=== PATIENT | female | born 1945 | race African-American/Black ===

== ENCOUNTER 2018-06-23 16:19 | Inpatient (IN) | payer OTHER ==
[2018-06-23] MEDS: SODIUM CHLORIDE 0.9% 1L BAG IV* (16:45)
[2018-06-23 17:02] LABS: ADD MAN DIFF? NO; BASOPHILS % 0.2 % (0.0-2.0); EOSINOPHILS % 0.4 % (0.0-7.0); HEMATOCRIT 22.5 % (37.0-47.0); HEMOGLOBIN 7.2 g/dl (12.0-16.0); LYMPHOCYTES # 1.1 10^3/ul (0.8-2.9); LYMPHOCYTES % 13.9 % (15.0-51.0); MEAN CORPUSCULAR HEMOGLOBIN 28.1 pg (29.0-33.0); MEAN CORPUSCULAR VOLUME 87.9 fl (82.0-101.0); MEAN PLATELET VOLUME 9.6 fl (7.4-10.4); MONOCYTE # 0.5 10^3/ul (0.3-0.9); NEUTROPHIL # 6.1 10^3/ul (1.6-7.5); NEUTROPHILS % 74.6 % (39.0-77.0); NUCLEATED RED BLOOD CELLS # 0.1 10^3/ul (0.0-0.0); NUCLEATED RED BLOOD CELLS% 0.6 /100WBC (0.0-0.0); PLATELET COUNT 376 10^3/UL (140-415); RED BLOOD COUNT 2.56 10^6/ul (4.20-5.40); RED CELL DISTRIBUTION WIDTH 13.3 % (11.5-14.5)
[2018-06-23 17:02] LABS: WHITE BLOOD COUNT 8.2 10^3/ul (4.8-10.8)
[2018-06-23 17:22] LABS: INR 1.05; PROTIME 13.8 Sec (11.9-14.9); PT RATIO 1.1
[2018-06-23 17:23] LABS: PARTIAL THROMBOPLASTIN TIME 33.6 Sec (23.0-35.0)
[2018-06-23] MEDS: CEFEPIME 2GM/50 ML (PMX) 50 ML IVPB (17:24)
[2018-06-23 17:25] LABS: LACTIC ACID 1.6 mmol/L (0.5-2.0)
[2018-06-23 17:25] LABS: ADD UMIC YES; ALANINE AMINOTRANSFERASE 17 IU/L (13-69); ALBUMIN/GLOBULIN RATIO 0.56; ALKALINE PHOSPHATASE 89 IU/L (42-121); ANION GAP 8 (5-13); ASPARTATE AMINO TRANSFERASE 26 IU/L (15-46); BILIRUBIN,INDIRECT 0.1 mg/dl (0-1.1); BILIRUBIN,TOTAL 0.1 mg/dl (0.2-1.3); CALCIUM 9.1 mg/dl (8.4-10.2); CARBON DIOXIDE 24 mmol/L (21-31); CHLORIDE 116 mmol/L (97-110); CREATININE 1.07 mg/dl (0.44-1.00); Estimated GFR > 60 mL/min (>60); GLUCOSE 129 mg/dl (70-220); POTASSIUM 3.5 mmol/L (3.5-5.1); SODIUM 148 mmol/L (135-144); TOTAL PROTEIN 8.3 g/dl (6.1-8.1); UR ASCORBIC ACID 40 mg/dL (NEGATIVE); UR BACTERIA FEW /HPF (NONE SEEN); UR BILIRUBIN (Dip) NEGATIVE (NEGATIVE); UR BLOOD (Dip) NEGATIVE (NEGATIVE); UR CLARITY CLOUDY (CLEAR); UR COLOR YELLOW (YELLOW); UR GLUCOSE (Dip) NEGATIVE (NEGATIVE); UR KETONES (Dip) TRACE mg/dL (NEGATIVE); UR LEUKOCYTE ESTERASE (Dip) 3+ Leu/ul (NEGATIVE); UR NITRITE (Dip) NEGATIVE (NEGATIVE); UR RBC 2 /HPF (0-5); UR SPECIFIC GRAVITY (Dip) 1.013 (1.003-1.030); UR TOTAL PROTEIN (Dip) 1+ mg/dl (NEGATIVE); UR UROBILINOGEN (Dip) NEGATIVE (NEGATIVE); UR WBC > 182 /HPF (0-5)
[2018-06-23 17:38] LABS: BLOOD UREA NITROGEN 147 mg/dl (7-20)
[2018-06-23 17:40] LABS: TROPONIN-I < 0.012 ng/ml (0.000-0.120)
[2018-06-23] MEDS: VANCOMYCIN 1 GM (PMX) 250 ML IVPB (18:04)
[2018-06-23] MEDS ORDERED: ACETAMINOPHEN 325 MG TAB PO ×2 (18:30→19:00)
[2018-06-23] MEDS ORDERED: ONDANSETRON 4 MG INJ IV ×2 (18:30→19:00)
[2018-06-23] MEDS ORDERED: SOD CHLORIDE 0.9% 1,000 ML IV (18:52)
[2018-06-23 18:53] LABS: LACTIC ACID 0.9 mmol/L (0.5-2.0)
[2018-06-23] MEDS ORDERED: morphine 2 MG INJ IV (19:00)
[2018-06-23] MEDS ORDERED: NACL 0.9% 3 ML SYG IV (19:00)
[2018-06-23] MEDS ORDERED: traMADol 50 MG TAB GTB (19:00)
[2018-06-23] MEDS ORDERED: HYDROCODONE/APAP (5/325) TAB PO (19:00)
[2018-06-23] MEDS ORDERED: ACETAMINOPHEN 325 MG TAB GTB (19:00)
[2018-06-23 21:32] LABS: LACTIC ACID 0.6 mmol/L (0.5-2.0)
[2018-06-23] MEDS: MIRTAZAPINE 15 MG TAB GTB (21:57)
[2018-06-23] MEDS: GABAPENTIN 300 MG CAP GTB (21:57)
[2018-06-23] MEDS: NS + KCL 20 MEQ 1,000 ML IV (22:10)
[2018-06-24] MEDS: PIPER-TAZO 3.375 GM IV (PMX) 100 ML IVPB ×4 (00:20→18:15)
[2018-06-24] MEDS: hydrALAzine 20 MG INJ IV (00:20)
[2018-06-24] MEDS: SOD CHLORIDE 0.9% 500 ML IV (03:41)
[2018-06-24] MEDS ORDERED: NORepinephrine 8MG/250 ML (PMX 250 ML (05:01)
[2018-06-24] MEDS: NS + KCL 20 MEQ 1,000 ML IV (05:30)
[2018-06-24 05:45] LABS: WHITE BLOOD COUNT 8.4 10^3/ul (4.8-10.8)
[2018-06-24 05:45] LABS: ABNORMAL IP MESSAGE 1; HEMATOCRIT 21.2 % (37.0-47.0); MEAN CORPUSCULAR HEMOGLOBIN 27.3 pg (29.0-33.0); MEAN CORPUSCULAR HGB CONC 31.6 g/dl (32.0-37.0); MEAN CORPUSCULAR VOLUME 86.5 fl (82.0-101.0); MEAN PLATELET VOLUME 9.8 fl (7.4-10.4); NUCLEATED RED BLOOD CELLS% 0.7 /100WBC (0.0-0.0); PLATELET COUNT 353 10^3/UL (140-415); RED BLOOD COUNT 2.45 10^6/ul (4.20-5.40); RED CELL DISTRIBUTION WIDTH 13.2 % (11.5-14.5)
[2018-06-24 05:51] LABS: ADD MAN DIFF? YES; POSITIVE DIFF @See below
[2018-06-24 05:52] LABS: HEMOGLOBIN 6.7 g/dl (12.0-16.0)
[2018-06-24 06:03] LABS: HEMOGLOBIN A1C 5.9 % (0-5.9)
[2018-06-24 06:13] LABS: ANION GAP 6 (5-13); CALCIUM 8.2 mg/dl (8.4-10.2); CARBON DIOXIDE 23 mmol/L (21-31); CHLORIDE 122 mmol/L (97-110); CREATININE 0.92 mg/dl (0.44-1.00); Estimated GFR > 60 mL/min (>60); GLUCOSE 85 mg/dl (70-220); MAGNESIUM 1.6 mg/dl (1.7-2.5); PHOSPHORUS 2.5 mg/dl (2.5-4.9); POTASSIUM 3.3 mmol/L (3.5-5.1); SODIUM 151 mmol/L (135-144)
[2018-06-24] MEDS: NORepinephrine 8MG/250 ML (PMX 250 ML IV (06:14)
[2018-06-24 06:26] LABS: BLOOD UREA NITROGEN 127 mg/dl (7-20)
[2018-06-24] MEDS: MAGNESIUM SULFATE 2 GM/50 ML 50 ML IVPB (07:07)
[2018-06-24 08:05] LABS: ANISOCYTOSIS 2+ (0-0); BAND NEUTROPHILS #M 0.5 10^3/ul (0.0-0.6); BAND NEUTROPHILS % (M) 7 % (0-4); EOSINOPHILS % (M) 1 % (0-7); HYPOCHROMASIA 3+ (0-0); LYMPHOCYTES % (M) 13 % (15-51); MONOCYTE #M 0.5 10^3/ul (0.3-0.9); MONOCYTES % (M) 6 % (0-11); MYELOCYTES % (M) 1 % (0-0); OVALOCYTES 1+ (0-0); PLATELET ESTIMATE NORMAL; POIKILOCYTOSIS 1+ (0-0); POLYCHROMASIA 3+ (0-0); SEG NEUT #M 6.1 10^3/ul (1.6-7.5); SEGMENTED NEUTROPHILS (M) % 72 % (39-77); SMUDGE%M 11 % (0-0); TARGET CELLS 1+ (0-0)
[2018-06-24] MEDS: ASCORBIC ACID 500 MG TAB GTB (08:57)
[2018-06-24] MEDS: POTASSIUM CHLORIDE 100 ML IVPB (08:58)
[2018-06-24] MEDS: ENOXAPARIN 40 MG/0.4 ML SYG SC (08:59)
[2018-06-24] MEDS: DEXTROSE 5% 1,000 ML IV ×3 (09:32→20:56)
[2018-06-24] MEDS: LEVOTHYROXINE 75 MCG TAB GTB (09:35)
[2018-06-24] MEDS: LIDOCAINE 1% (MPF) 5 ML VIAL SC (13:35)
[2018-06-24] MEDS: GABAPENTIN 300 MG CAP GTB (20:58)
[2018-06-25] MEDS: PIPER-TAZO 3.375 GM IV (PMX) 100 ML IVPB ×4 (00:18→17:26)
[2018-06-25] MEDS: DEXTROSE 5% 1,000 ML IV (05:18)
[2018-06-25 05:27] LABS: ADD MAN DIFF? NO
[2018-06-25 05:31] LABS: BASOPHILS % 0.2 % (0.0-2.0); EOSINOPHILS % 0.2 % (0.0-7.0); HEMATOCRIT 24.3 % (37.0-47.0); HEMOGLOBIN 7.7 g/dl (12.0-16.0); LYMPHOCYTES # 1.2 10^3/ul (0.8-2.9); LYMPHOCYTES % 9.4 % (15.0-51.0); MEAN CORPUSCULAR HEMOGLOBIN 28.2 pg (29.0-33.0); MEAN CORPUSCULAR HGB CONC 31.7 g/dl (32.0-37.0); MEAN PLATELET VOLUME 9.7 fl (7.4-10.4); MONOCYTE # 0.5 10^3/ul (0.3-0.9); MONOCYTES % 3.9 % (0.0-11.0); NEUTROPHIL # 10.4 10^3/ul (1.6-7.5); NEUTROPHILS % 84.2 % (39.0-77.0); NUCLEATED RED BLOOD CELLS # 0.1 10^3/ul (0.0-0.0); NUCLEATED RED BLOOD CELLS% 0.6 /100WBC (0.0-0.0); PLATELET COUNT 324 10^3/UL (140-415); RED BLOOD COUNT 2.73 10^6/ul (4.20-5.40)
[2018-06-25 05:31] LABS: WHITE BLOOD COUNT 12.4 10^3/ul (4.8-10.8)
[2018-06-25 06:05] LABS: ALANINE AMINOTRANSFERASE 10 IU/L (13-69); ALBUMIN 2.8 g/dl (3.3-4.9); ALKALINE PHOSPHATASE 80 IU/L (42-121); ANION GAP 7 (5-13); ASPARTATE AMINO TRANSFERASE 20 IU/L (15-46); BILIRUBIN,INDIRECT 0.1 mg/dl (0-1.1); BILIRUBIN,TOTAL 0.1 mg/dl (0.2-1.3); BLOOD UREA NITROGEN 106 mg/dl (7-20); CALCIUM 8.4 mg/dl (8.4-10.2); CARBON DIOXIDE 22 mmol/L (21-31); CHLORIDE 118 mmol/L (97-110); CREATININE 0.97 mg/dl (0.44-1.00); Estimated GFR > 60 mL/min (>60); GLUCOSE 189 mg/dl (70-220); POTASSIUM 3.2 mmol/L (3.5-5.1); SODIUM 147 mmol/L (135-144); TOTAL PROTEIN 7.4 g/dl (6.1-8.1)
[2018-06-25] MEDS: ASCORBIC ACID 500 MG TAB GTB (08:19)
[2018-06-25] MEDS: LEVOTHYROXINE 75 MCG TAB GTB (08:19)
[2018-06-25 08:51] LABS: AADO2 Arterial 50.3 mmHg (7.0-24.0); Allen Test ACCEPTAB; Arterial Base Excess -6.2 mmol/L (-3.0-3); Arterial Blood Gas Oxygen Sat 97.9 mmHG (95.0-98.0); Arterial COHb 0.3 % (0.0-3.0); Arterial Fraction of Oxyhgb 97.4 % (93.0-99.0); Arterial MetHb 0.2 % (0.0-1.5); Arterial pCO2 42.6 mmhg (35-45); MODE NASAL CANNULA; Site Right Radial
[2018-06-25] MEDS ORDERED: morphine LIQ (10 MG/5 ML) CUP GTB (12:00)
[2018-06-25 12:32] LABS: IMMEDIATE SPIN CROSSMATCH 1 2
[2018-06-25 13:24] LABS: MAGNESIUM 2.1 mg/dl (1.7-2.5)
[2018-06-25] MEDS: POTASSIUM CHLORIDE 100 ML IVPB ×3 (14:06→19:57)
[2018-06-25] MEDS: DEXTROSE 5%-0.225% NACL 1,000 ML IV ×2 (14:20→21:30)
[2018-06-25] MEDS: GABAPENTIN 300 MG CAP GTB (20:02)
[2018-06-25] MEDS: MUPIROCIN 2% 22 GM OINT TOP (20:04)
[2018-06-25] MEDS: NORepinephrine 8MG/250 ML (PMX 250 ML IV (21:50)
[2018-06-26] MEDS: PIPER-TAZO 3.375 GM IV (PMX) 100 ML IVPB ×4 (00:32→18:02)
[2018-06-26 04:31] LABS: ADD MAN DIFF? NO
[2018-06-26 04:36] LABS: WHITE BLOOD COUNT 9.8 10^3/ul (4.8-10.8)
[2018-06-26 04:36] LABS: BASOPHILS % 0.2 % (0.0-2.0); EOSINOPHILS # 0.1 10^3/ul (0.0-0.5); EOSINOPHILS % 0.5 % (0.0-7.0); HEMATOCRIT 28.5 % (37.0-47.0); LYMPHOCYTES # 1.3 10^3/ul (0.8-2.9); MEAN CORPUSCULAR HEMOGLOBIN 28.2 pg (29.0-33.0); MEAN CORPUSCULAR HGB CONC 31.6 g/dl (32.0-37.0); MEAN CORPUSCULAR VOLUME 89.3 fl (82.0-101.0); MEAN PLATELET VOLUME 9.7 fl (7.4-10.4); MONOCYTE # 0.7 10^3/ul (0.3-0.9); MONOCYTES % 6.8 % (0.0-11.0); NEUTROPHIL # 7.6 10^3/ul (1.6-7.5); NEUTROPHILS % 77.5 % (39.0-77.0); NUCLEATED RED BLOOD CELLS # 0.1 10^3/ul (0.0-0.0); NUCLEATED RED BLOOD CELLS% 1.1 /100WBC (0.0-0.0); PLATELET COUNT 279 10^3/UL (140-415); RED BLOOD COUNT 3.19 10^6/ul (4.20-5.40)
[2018-06-26 04:54] LABS: ANION GAP 7 (5-13); BLOOD UREA NITROGEN 81 mg/dl (7-20); CALCIUM 8.3 mg/dl (8.4-10.2); CARBON DIOXIDE 22 mmol/L (21-31); CHLORIDE 115 mmol/L (97-110); CREATININE 0.84 mg/dl (0.44-1.00); Estimated GFR > 60 mL/min (>60); GLUCOSE 177 mg/dl (70-220); MAGNESIUM 1.6 mg/dl (1.7-2.5); PHOSPHORUS 2.5 mg/dl (2.5-4.9); POTASSIUM 3.8 mmol/L (3.5-5.1); SODIUM 144 mmol/L (135-144)
[2018-06-26] MEDS: DEXTROSE 5%-0.225% NACL 1,000 ML IV ×2 (05:23→16:29)
[2018-06-26] MEDS: POTASSIUM CHLORIDE 100 ML IVPB ×2 (06:36→08:26)
[2018-06-26] MEDS: MAGNESIUM SULFATE 2 GM/50 ML 50 ML IVPB (06:36)
[2018-06-26] MEDS: ASCORBIC ACID 500 MG TAB GTB (08:11)
[2018-06-26] MEDS: MUPIROCIN 2% 22 GM OINT TOP ×3 (08:12→20:39)
[2018-06-26] MEDS: LEVOTHYROXINE 75 MCG TAB GTB (08:12)
[2018-06-26] MEDS: ALBUMIN HUMAN 25% 100 ML IV ×2 (09:54→17:04)
[2018-06-26] MEDS: MIDODRINE 5 MG TAB PO ×3 (10:23→17:03)
[2018-06-26] MEDS ORDERED: VANCOMYCIN IV PER PHARMACY XX (11:30)
[2018-06-26] MEDS: VANCOMYCIN HCL 1.75 GM in SOD CHLORIDE 0.9% 500 ML IVPB (13:43)
[2018-06-26 17:43] LABS: ADD UMIC YES; UR ASCORBIC ACID 20 mg/dL (NEGATIVE); UR BACTERIA FEW /HPF (NONE SEEN); UR BILIRUBIN (Dip) NEGATIVE (NEGATIVE); UR BLOOD (Dip) 1+ mg/dL (NEGATIVE); UR BUDDING YEAST MANY /HPF (NONE SEEN); UR CLARITY CLOUDY (CLEAR); UR COLOR YELLOW (YELLOW); UR GLUCOSE (Dip) NEGATIVE (NEGATIVE); UR KETONES (Dip) NEGATIVE (NEGATIVE); UR LEUKOCYTE ESTERASE (Dip) 3+ Leu/ul (NEGATIVE); UR MUCUS FEW /HPF (NONE SEEN); UR NITRITE (Dip) NEGATIVE (NEGATIVE); UR RBC 10 /HPF (0-5); UR SPECIFIC GRAVITY (Dip) 1.012 (1.003-1.030); UR SQUAMOUS EPITHELIAL CELL FEW /HPF (FEW); UR TOTAL PROTEIN (Dip) 2+ mg/dl (NEGATIVE); UR UROBILINOGEN (Dip) NEGATIVE (NEGATIVE); UR WBC 124 /HPF (0-5)
[2018-06-26 18:01] LABS: CREATININE,URINE RANDOM 16.38 mg/dl (20-320)
[2018-06-26 18:05] LABS: SODIUM,URINE RANDOM 13 mmol/L (30-90)
[2018-06-26] MEDS: GABAPENTIN 300 MG CAP GTB (20:39)
[2018-06-27] MEDS: PIPER-TAZO 3.375 GM IV (PMX) 100 ML IVPB ×4 (00:46→17:31)
[2018-06-27] MEDS: VANCOMYCIN 1 GM 250 ML IVPB ×2 (02:24→14:13)
[2018-06-27] MEDS: ALBUMIN HUMAN 25% 100 ML IV ×3 (02:26→15:30)
[2018-06-27 05:15] LABS: ADD MAN DIFF? NO
[2018-06-27 05:23] LABS: WHITE BLOOD COUNT 10.5 10^3/ul (4.8-10.8)
[2018-06-27 05:23] LABS: BASOPHILS % 0.2 % (0.0-2.0); EOSINOPHILS # 0.1 10^3/ul (0.0-0.5); EOSINOPHILS % 0.9 % (0.0-7.0); HEMATOCRIT 26.8 % (37.0-47.0); HEMOGLOBIN 8.2 g/dl (12.0-16.0); LYMPHOCYTES # 1.2 10^3/ul (0.8-2.9); LYMPHOCYTES % 11.3 % (15.0-51.0); MEAN CORPUSCULAR HEMOGLOBIN 27.7 pg (29.0-33.0); MEAN CORPUSCULAR HGB CONC 30.6 g/dl (32.0-37.0); MEAN CORPUSCULAR VOLUME 90.5 fl (82.0-101.0); MEAN PLATELET VOLUME 9.9 fl (7.4-10.4); MONOCYTE # 0.7 10^3/ul (0.3-0.9); MONOCYTES % 6.5 % (0.0-11.0); NEUTROPHIL # 8.3 10^3/ul (1.6-7.5); NEUTROPHILS % 79.3 % (39.0-77.0); NUCLEATED RED BLOOD CELLS # 0.1 10^3/ul (0.0-0.0); PLATELET COUNT 238 10^3/UL (140-415); RED BLOOD COUNT 2.96 10^6/ul (4.20-5.40); RED CELL DISTRIBUTION WIDTH 15.8 % (11.5-14.5)
[2018-06-27] MEDS: LEVOTHYROXINE 75 MCG TAB GTB (06:19)
[2018-06-27 06:29] LABS: ANION GAP 9 (5-13); BLOOD UREA NITROGEN 69 mg/dl (7-20); CALCIUM 8.6 mg/dl (8.4-10.2); CARBON DIOXIDE 20 mmol/L (21-31); CHLORIDE 115 mmol/L (97-110); CREATININE 0.73 mg/dl (0.44-1.00); Estimated GFR > 60 mL/min (>60); GLUCOSE 100 mg/dl (70-220); POTASSIUM 4.5 mmol/L (3.5-5.1); SODIUM 144 mmol/L (135-144)
[2018-06-27] MEDS: DEXTROSE 5%-0.225% NACL 1,000 ML IV (07:00)
[2018-06-27] MEDS: MIDODRINE 5 MG TAB PO ×3 (08:00→17:31)
[2018-06-27] MEDS: MUPIROCIN 2% 22 GM OINT TOP ×3 (08:00→21:30)
[2018-06-27] MEDS: ASCORBIC ACID 500 MG TAB GTB (08:00)
[2018-06-27 08:06] LABS: AADO2 Arterial 79.7 mmHg (7.0-24.0); Allen Test ACCEPTAB; Arterial Blood Gas Oxygen Sat 95.2 mmHG (95.0-98.0); Arterial COHb 0.3 % (0.0-3.0); Arterial Fraction of Oxyhgb 94.8 % (93.0-99.0); Arterial HCO3 20.1 mmol/L (22.0-26.0); Arterial MetHb 0.1 % (0.0-1.5); Arterial pCO2 48.2 mmhg (35-45); MODE NASAL CANNULA; Site Right Radial
[2018-06-27] MEDS: FLUCONAZOLE 100 MG TAB PO (15:31)
[2018-06-27] MEDS: GABAPENTIN 300 MG CAP GTB (21:29)
[2018-06-27 23:16] LABS: AADO2 Arterial 310.2 mmHg (7.0-24.0); Allen Test ACCEPTAB; Arterial Base Excess -7.4 mmol/L (-3.0-3); Arterial Blood Gas Oxygen Sat 94.1 mmHG (95.0-98.0); Arterial COHb 0.3 % (0.0-3.0); Arterial Fraction of Oxyhgb 93.7 % (93.0-99.0); Arterial HCO3 19.3 mmol/L (22.0-26.0); Arterial MetHb 0.1 % (0.0-1.5); Arterial pCO2 44.4 mmhg (35-45); MODE TRACH COLLAR; Site Left Radial
[2018-06-28] MEDS: ALBUMIN HUMAN 25% 100 ML IV (00:54)
[2018-06-28] MEDS: PIPER-TAZO 3.375 GM IV (PMX) 100 ML IVPB ×5 (00:54→23:03)
[2018-06-28] MEDS: VANCOMYCIN 1 GM 250 ML IVPB (02:18)
[2018-06-28] MEDS: DEXTROSE 5%-0.225% NACL 1,000 ML IV ×2 (02:22→22:58)
[2018-06-28 02:25] LABS: VANCOMYCIN,TROUGH 34.6 ug/ml (10.0-20.0)
[2018-06-28 05:55] LABS: ADD MAN DIFF? NO
[2018-06-28 05:58] LABS: BASOPHILS % 0.3 % (0.0-2.0); EOSINOPHILS % 0.4 % (0.0-7.0); HEMOGLOBIN 8.4 g/dl (12.0-16.0); LYMPHOCYTES % 11.5 % (15.0-51.0); MEAN CORPUSCULAR HEMOGLOBIN 28.3 pg (29.0-33.0); MEAN CORPUSCULAR HGB CONC 31.1 g/dl (32.0-37.0); MEAN CORPUSCULAR VOLUME 90.9 fl (82.0-101.0); MEAN PLATELET VOLUME 10.1 fl (7.4-10.4); MONOCYTE # 0.4 10^3/ul (0.3-0.9); MONOCYTES % 4.7 % (0.0-11.0); NEUTROPHIL # 7.4 10^3/ul (1.6-7.5); NEUTROPHILS % 82.1 % (39.0-77.0); NUCLEATED RED BLOOD CELLS # 0.1 10^3/ul (0.0-0.0); PLATELET COUNT 217 10^3/UL (140-415); RED BLOOD COUNT 2.97 10^6/ul (4.20-5.40); RED CELL DISTRIBUTION WIDTH 15.9 % (11.5-14.5)
[2018-06-28 06:34] LABS: MAGNESIUM 1.7 mg/dl (1.7-2.5)
[2018-06-28 06:34] LABS: PHOSPHORUS 2.9 mg/dl (2.5-4.9)
[2018-06-28 06:36] LABS: ANION GAP 6 (5-13); BLOOD UREA NITROGEN 58 mg/dl (7-20); CALCIUM 8.7 mg/dl (8.4-10.2); CARBON DIOXIDE 21 mmol/L (21-31); CHLORIDE 119 mmol/L (97-110); CREATININE 0.67 mg/dl (0.44-1.00); Estimated GFR > 60 mL/min (>60); GLUCOSE 115 mg/dl (70-220); POTASSIUM 4.3 mmol/L (3.5-5.1); SODIUM 146 mmol/L (135-144)
[2018-06-28] MEDS: LEVOTHYROXINE 75 MCG TAB GTB (07:06)
[2018-06-28] MEDS: MIDODRINE 5 MG TAB PO ×3 (08:10→17:22)
[2018-06-28] MEDS: MUPIROCIN 2% 22 GM OINT TOP ×2 (08:10→20:18)
[2018-06-28] MEDS: FLUCONAZOLE 100 MG TAB PO (08:10)
[2018-06-28] MEDS: ASCORBIC ACID 500 MG TAB GTB (08:10)
[2018-06-28] MEDS: HEPARIN 25000 UNITS/250 ML 250 ML IV (09:44)
[2018-06-28] MEDS: HEPARIN 1000 UNITS/ML 10 ML INJ IV (09:45)
[2018-06-28 15:53] LABS: PARTIAL THROMBOPLASTIN TIME > 180.0 Sec (23.0-35.0)
[2018-06-28 16:32] LABS: CREATININE, RANDOM URINE 17 mg/dL (20-275); MICROALBUMIN 30.7 mg/dL; MICROALBUMIN/CREATININE RATIO 1806 (<30)
[2018-06-28 19:30] LABS: PARTIAL THROMBOPLASTIN TIME 169.8 Sec (23.0-35.0)
[2018-06-28] MEDS: GABAPENTIN 300 MG CAP GTB (20:18)
[2018-06-28 20:24] LABS: ADD UMIC YES; UR AMORPHOUS CRYSTAL FEW /HPF (NONE SEEN); UR ASCORBIC ACID 20 mg/dL (NEGATIVE); UR BILIRUBIN (Dip) NEGATIVE (NEGATIVE); UR BLOOD (Dip) 1+ mg/dL (NEGATIVE); UR CLARITY CLOUDY (CLEAR); UR COLOR YELLOW (YELLOW); UR GLUCOSE (Dip) NEGATIVE (NEGATIVE); UR KETONES (Dip) NEGATIVE (NEGATIVE); UR LEUKOCYTE ESTERASE (Dip) 3+ Leu/ul (NEGATIVE); UR NITRITE (Dip) NEGATIVE (NEGATIVE); UR RBC 5 /HPF (0-5); UR SPECIFIC GRAVITY (Dip) 1.006 (1.003-1.030); UR SQUAMOUS EPITHELIAL CELL MODERATE /HPF (FEW); UR TOTAL PROTEIN (Dip) NEGATIVE (NEGATIVE); UR UROBILINOGEN (Dip) NEGATIVE (NEGATIVE); UR WBC 31 /HPF (0-5)
[2018-06-28 20:37] LABS: SODIUM,URINE RANDOM < 13 mmol/L (30-90)
[2018-06-28 20:38] LABS: CREATININE,URINE RANDOM < 12.40 mg/dl (20-320)
[2018-06-28 20:49] LABS: PARTIAL THROMBOPLASTIN TIME 83.7 Sec (23.0-35.0)
[2018-06-29] MEDS: NORepinephrine 8MG/250 ML (PMX 250 ML IV (04:58)
[2018-06-29] MEDS: PIPER-TAZO 3.375 GM IV (PMX) 100 ML IVPB ×3 (05:06→17:59)
[2018-06-29 05:41] LABS: ADD MAN DIFF? NO
[2018-06-29 05:50] LABS: WHITE BLOOD COUNT 8.5 10^3/ul (4.8-10.8)
[2018-06-29 05:50] LABS: BASOPHILS % 0.2 % (0.0-2.0); EOSINOPHILS # 0.1 10^3/ul (0.0-0.5); EOSINOPHILS % 0.8 % (0.0-7.0); HEMATOCRIT 27.3 % (37.0-47.0); HEMOGLOBIN 8.4 g/dl (12.0-16.0); LYMPHOCYTES # 1.5 10^3/ul (0.8-2.9); LYMPHOCYTES % 17.3 % (15.0-51.0); MEAN CORPUSCULAR HEMOGLOBIN 27.5 pg (29.0-33.0); MEAN CORPUSCULAR HGB CONC 30.8 g/dl (32.0-37.0); MEAN CORPUSCULAR VOLUME 89.5 fl (82.0-101.0); MEAN PLATELET VOLUME 10.2 fl (7.4-10.4); MONOCYTE # 0.6 10^3/ul (0.3-0.9); MONOCYTES % 6.9 % (0.0-11.0); NEUTROPHIL # 6.2 10^3/ul (1.6-7.5); NUCLEATED RED BLOOD CELLS # 0.2 10^3/ul (0.0-0.0); PLATELET COUNT 235 10^3/UL (140-415); RED BLOOD COUNT 3.05 10^6/ul (4.20-5.40); RED CELL DISTRIBUTION WIDTH 15.9 % (11.5-14.5)
[2018-06-29 06:13] LABS: ANION GAP 5 (5-13); BLOOD UREA NITROGEN 48 mg/dl (7-20); CALCIUM 8.7 mg/dl (8.4-10.2); CARBON DIOXIDE 21 mmol/L (21-31); CHLORIDE 119 mmol/L (97-110); CREATININE 0.64 mg/dl (0.44-1.00); Estimated GFR > 60 mL/min (>60); GLUCOSE 114 mg/dl (70-220); MAGNESIUM 1.5 mg/dl (1.7-2.5); PHOSPHORUS 2.4 mg/dl (2.5-4.9); POTASSIUM 4.5 mmol/L (3.5-5.1); SODIUM 145 mmol/L (135-144)
[2018-06-29] MEDS: LEVOTHYROXINE 75 MCG TAB GTB (06:37)
[2018-06-29 06:51] LABS: PARTIAL THROMBOPLASTIN TIME > 180.0 Sec (23.0-35.0)
[2018-06-29] MEDS ORDERED: ATROPINE 1 MG/10 ML SYRINGE (07:00)
[2018-06-29 08:20] LABS: VANCOMYCIN,RANDOM 28.5 ug/ml
[2018-06-29] MEDS: DEXTROSE 5% WATER 500 ML BAG IV (08:56)
[2018-06-29] MEDS: LACTATED RINGER'S 500 ML IV (08:57)
[2018-06-29] MEDS: MUPIROCIN 2% 22 GM OINT TOP ×2 (08:58→21:02)
[2018-06-29] MEDS: MIDODRINE 5 MG TAB PO ×3 (08:58→17:59)
[2018-06-29] MEDS: FLUCONAZOLE 100 MG TAB PO (08:58)
[2018-06-29] MEDS: ASCORBIC ACID 500 MG TAB GTB (08:58)
[2018-06-29 09:56] LABS: PARTIAL THROMBOPLASTIN TIME 114.2 Sec (23.0-35.0)
[2018-06-29] MEDS: MAGNESIUM SULFATE 4 GM/100 ML 100 ML IVPB (10:18)
[2018-06-29 11:42] LABS: PARTIAL THROMBOPLASTIN TIME 62.3 Sec (23.0-35.0)
[2018-06-29] MEDS: HEPARIN 25000 UNITS/250 ML 250 ML IV (12:18)
[2018-06-29] MEDS: GABAPENTIN 300 MG CAP GTB (21:01)
[2018-06-29] MEDS: DEXTROSE 5%-0.225% NACL 1,000 ML IV (21:02)
[2018-06-29 21:22] LABS: PARTIAL THROMBOPLASTIN TIME 89.7 Sec (23.0-35.0)
[2018-06-30] MEDS: PIPER-TAZO 3.375 GM IV (PMX) 100 ML IVPB ×4 (00:01→17:26)
[2018-06-30 04:27] LABS: PARTIAL THROMBOPLASTIN TIME 101.5 Sec (23.0-35.0)
[2018-06-30 05:04] LABS: Allen Test ACCEPTAB; Arterial Base Excess -2.5 mmol/L (-3.0-3); Arterial Blood Gas Oxygen Sat 97.9 mmHG (95.0-98.0); Arterial COHb 0.5 % (0.0-3.0); Arterial Fraction of Oxyhgb 97.3 % (93.0-99.0); Arterial HCO3 22.7 mmol/L (22.0-26.0); Arterial MetHb 0.1 % (0.0-1.5); Arterial pCO2 40.7 mmhg (35-45); MODE TRACH COLLAR; Site Left Radial
[2018-06-30 05:25] LABS: ADD MAN DIFF? NO
[2018-06-30 05:28] LABS: BASOPHILS % 0.3 % (0.0-2.0); EOSINOPHILS # 0.1 10^3/ul (0.0-0.5); EOSINOPHILS % 1.1 % (0.0-7.0); HEMOGLOBIN 8.2 g/dl (12.0-16.0); LYMPHOCYTES # 1.7 10^3/ul (0.8-2.9); LYMPHOCYTES % 22.8 % (15.0-51.0); MEAN CORPUSCULAR HGB CONC 31.5 g/dl (32.0-37.0); MEAN CORPUSCULAR VOLUME 88.7 fl (82.0-101.0); MEAN PLATELET VOLUME 10.4 fl (7.4-10.4); MONOCYTE # 0.8 10^3/ul (0.3-0.9); MONOCYTES % 10.4 % (0.0-11.0); NEUTROPHIL # 4.8 10^3/ul (1.6-7.5); NEUTROPHILS % 63.5 % (39.0-77.0); NUCLEATED RED BLOOD CELLS # 0.1 10^3/ul (0.0-0.0); NUCLEATED RED BLOOD CELLS% 1.2 /100WBC (0.0-0.0); PLATELET COUNT 225 10^3/UL (140-415); RED BLOOD COUNT 2.93 10^6/ul (4.20-5.40); RED CELL DISTRIBUTION WIDTH 15.9 % (11.5-14.5)
[2018-06-30 05:28] LABS: WHITE BLOOD COUNT 7.5 10^3/ul (4.8-10.8)
[2018-06-30 06:04] LABS: MAGNESIUM 2.1 mg/dl (1.7-2.5)
[2018-06-30] MEDS: LEVOTHYROXINE 75 MCG TAB GTB (06:10)
[2018-06-30 07:31] LABS: ANION GAP 4 (5-13); BLOOD UREA NITROGEN 38 mg/dl (7-20); CALCIUM 8.6 mg/dl (8.4-10.2); CARBON DIOXIDE 22 mmol/L (21-31); CHLORIDE 118 mmol/L (97-110); CREATININE 0.57 mg/dl (0.44-1.00); Estimated GFR > 60 mL/min (>60); GLUCOSE 114 mg/dl (70-220); POTASSIUM 4.2 mmol/L (3.5-5.1); SODIUM 144 mmol/L (135-144)
[2018-06-30] MEDS: MIDODRINE 5 MG TAB PO ×3 (08:13→17:27)
[2018-06-30] MEDS: FLUCONAZOLE 100 MG TAB PO (08:13)
[2018-06-30] MEDS: ASCORBIC ACID 500 MG TAB GTB (08:13)
[2018-06-30] MEDS: MUPIROCIN 2% 22 GM OINT TOP ×2 (08:14→20:37)
[2018-06-30] MEDS: DEXTROSE 5% WATER 500 ML BAG IV (08:31)
[2018-06-30] MEDS: LACTATED RINGER'S 500 ML IV (08:34)
[2018-06-30 11:10] LABS: PARTIAL THROMBOPLASTIN TIME 119.9 Sec (23.0-35.0)
[2018-06-30] MEDS: HEPARIN 25000 UNITS/250 ML 250 ML IV (12:23)
[2018-06-30] MEDS: NORepinephrine 8MG/250 ML (PMX 250 ML IV (12:23)
[2018-06-30] MEDS: DEXTROSE 5%-0.225% NACL 1,000 ML IV (17:20)
[2018-06-30 19:17] LABS: PARTIAL THROMBOPLASTIN TIME 69.5 Sec (23.0-35.0)
[2018-06-30] MEDS: GABAPENTIN 300 MG CAP GTB (20:37)
[2018-07-01 01:37] LABS: PARTIAL THROMBOPLASTIN TIME 65.2 Sec (23.0-35.0)
[2018-07-01 05:30] LABS: ADD MAN DIFF? NO
[2018-07-01 05:40] LABS: BASOPHILS % 0.5 % (0.0-2.0); EOSINOPHILS # 0.1 10^3/ul (0.0-0.5); EOSINOPHILS % 0.9 % (0.0-7.0); HEMOGLOBIN 8.2 g/dl (12.0-16.0); LYMPHOCYTES # 1.6 10^3/ul (0.8-2.9); LYMPHOCYTES % 20.5 % (15.0-51.0); MEAN CORPUSCULAR HEMOGLOBIN 27.9 pg (29.0-33.0); MEAN CORPUSCULAR HGB CONC 31.5 g/dl (32.0-37.0); MEAN CORPUSCULAR VOLUME 88.4 fl (82.0-101.0); MEAN PLATELET VOLUME 10.9 fl (7.4-10.4); MONOCYTE # 0.8 10^3/ul (0.3-0.9); MONOCYTES % 10.3 % (0.0-11.0); NEUTROPHIL # 5.2 10^3/ul (1.6-7.5); NEUTROPHILS % 66.6 % (39.0-77.0); NUCLEATED RED BLOOD CELLS # 0.1 10^3/ul (0.0-0.0); NUCLEATED RED BLOOD CELLS% 0.8 /100WBC (0.0-0.0); PLATELET COUNT 246 10^3/UL (140-415); RED BLOOD COUNT 2.94 10^6/ul (4.20-5.40); RED CELL DISTRIBUTION WIDTH 16.2 % (11.5-14.5)
[2018-07-01 05:40] LABS: WHITE BLOOD COUNT 7.8 10^3/ul (4.8-10.8)
[2018-07-01 05:57] LABS: LACTIC ACID 1.1 mmol/L (0.5-2.0)
[2018-07-01] MEDS: PIPER-TAZO 3.375 GM IV (PMX) 100 ML IVPB ×3 (06:31→11:45)
[2018-07-01] MEDS: LEVOTHYROXINE 75 MCG TAB GTB (06:31)
[2018-07-01 07:00] LABS: ANION GAP 6 (5-13); BLOOD UREA NITROGEN 31 mg/dl (7-20); CALCIUM 8.8 mg/dl (8.4-10.2); CARBON DIOXIDE 24 mmol/L (21-31); CHLORIDE 114 mmol/L (97-110); CREATININE 0.59 mg/dl (0.44-1.00); Estimated GFR > 60 mL/min (>60); GLUCOSE 113 mg/dl (70-220); POTASSIUM 4.3 mmol/L (3.5-5.1); SODIUM 144 mmol/L (135-144)
[2018-07-01 07:07] LABS: VANCOMYCIN,RANDOM 17.1 ug/ml
[2018-07-01 08:46] LABS: PARTIAL THROMBOPLASTIN TIME 104.2 Sec (23.0-35.0)
[2018-07-01] MEDS: MIDODRINE 5 MG TAB PO ×3 (09:20→21:17)
[2018-07-01] MEDS: FLUCONAZOLE 100 MG TAB PO (09:20)
[2018-07-01] MEDS: ASCORBIC ACID 500 MG TAB GTB (09:20)
[2018-07-01] MEDS: MUPIROCIN 2% 22 GM OINT TOP ×2 (09:20→21:16)
[2018-07-01] MEDS ORDERED: NORepinephrine 8MG/250 ML (PMX 250 ML IV (12:30)
[2018-07-01] MEDS: VANCOMYCIN 1 GM 250 ML IVPB (13:42)
[2018-07-01 15:48] LABS: PARTIAL THROMBOPLASTIN TIME 55.8 Sec (23.0-35.0)
[2018-07-01 16:16] LABS: CREATININE, RANDOM URINE 13 mg/dL (20-275); MICROALBUMIN 4.7 mg/dL; MICROALBUMIN/CREATININE RATIO 362 (<30)
[2018-07-01] MEDS: DEXTROSE 5%-0.225% NACL 1,000 ML IV ×2 (16:36→18:05)
[2018-07-01] MEDS: HEPARIN 1000 UNITS/ML 10 ML INJ IV (16:53)
[2018-07-01] MEDS: GABAPENTIN 300 MG CAP GTB (21:16)
[2018-07-01] MEDS: APIXABAN 5 MG TABLET PO (21:16)
[2018-07-02] MEDS ORDERED: SOD CHLORIDE 0.9% 1,000 ML IV (05:00)
[2018-07-02 05:11] LABS: ADD MAN DIFF? NO
[2018-07-02 05:26] LABS: BASOPHIL # 0.1 10^3/ul (0.0-0.1); BASOPHILS % 0.5 % (0.0-2.0); EOSINOPHILS # 0.1 10^3/ul (0.0-0.5); EOSINOPHILS % 0.9 % (0.0-7.0); HEMATOCRIT 26.8 % (37.0-47.0); HEMOGLOBIN 8.4 g/dl (12.0-16.0); LYMPHOCYTES # 1.8 10^3/ul (0.8-2.9); MEAN CORPUSCULAR HEMOGLOBIN 27.7 pg (29.0-33.0); MEAN CORPUSCULAR HGB CONC 31.3 g/dl (32.0-37.0); MEAN CORPUSCULAR VOLUME 88.4 fl (82.0-101.0); MEAN PLATELET VOLUME 11.3 fl (7.4-10.4); MONOCYTE # 1.4 10^3/ul (0.3-0.9); MONOCYTES % 13.8 % (0.0-11.0); NEUTROPHIL # 6.6 10^3/ul (1.6-7.5); NEUTROPHILS % 65.9 % (39.0-77.0); NUCLEATED RED BLOOD CELLS # 0.1 10^3/ul (0.0-0.0); NUCLEATED RED BLOOD CELLS% 0.6 /100WBC (0.0-0.0); PLATELET COUNT 264 10^3/UL (140-415); RED BLOOD COUNT 3.03 10^6/ul (4.20-5.40); RED CELL DISTRIBUTION WIDTH 16.3 % (11.5-14.5)
[2018-07-02 05:38] LABS: ANION GAP 7 (5-13); BLOOD UREA NITROGEN 28 mg/dl (7-20); CARBON DIOXIDE 23 mmol/L (21-31); CHLORIDE 115 mmol/L (97-110); CREATININE 0.62 mg/dl (0.44-1.00); Estimated GFR > 60 mL/min (>60); GLUCOSE 103 mg/dl (70-220); MAGNESIUM 1.5 mg/dl (1.7-2.5); PHOSPHORUS 3.2 mg/dl (2.5-4.9); POTASSIUM 4.3 mmol/L (3.5-5.1); SODIUM 145 mmol/L (135-144)
[2018-07-02] MEDS: LEVOTHYROXINE 75 MCG TAB GTB (06:50)
[2018-07-02] MEDS: MIDODRINE 5 MG TAB PO ×3 (06:50→21:04)
[2018-07-02] MEDS: ASCORBIC ACID 500 MG TAB GTB (09:05)
[2018-07-02] MEDS: MAGNESIUM SULFATE 2 GM/50 ML 50 ML IVPB (09:05)
[2018-07-02] MEDS: APIXABAN 5 MG TABLET PO ×2 (09:05→21:04)
[2018-07-02] MEDS: MUPIROCIN 2% 22 GM OINT TOP (09:06)
[2018-07-02] MEDS: GABAPENTIN 100 MG CAP GTB (21:04)
[2018-07-02] MEDS: ALBUTEROL/IPRATROPIUM (NEB) 3 ML AMP HHN (21:56)
[2018-07-03 05:14] LABS: ADD MAN DIFF? NO
[2018-07-03] MEDS: MIDODRINE 5 MG TAB PO ×3 (05:16→21:10)
[2018-07-03 05:24] LABS: BASOPHILS % 0.2 % (0.0-2.0); EOSINOPHILS # 0.1 10^3/ul (0.0-0.5); EOSINOPHILS % 1.1 % (0.0-7.0); HEMATOCRIT 24.6 % (37.0-47.0); HEMOGLOBIN 7.6 g/dl (12.0-16.0); LYMPHOCYTES # 1.5 10^3/ul (0.8-2.9); LYMPHOCYTES % 17.9 % (15.0-51.0); MEAN CORPUSCULAR HEMOGLOBIN 27.9 pg (29.0-33.0); MEAN CORPUSCULAR HGB CONC 30.9 g/dl (32.0-37.0); MEAN CORPUSCULAR VOLUME 90.4 fl (82.0-101.0); MEAN PLATELET VOLUME 11.3 fl (7.4-10.4); MONOCYTE # 0.9 10^3/ul (0.3-0.9); MONOCYTES % 10.5 % (0.0-11.0); NEUTROPHIL # 5.9 10^3/ul (1.6-7.5); NEUTROPHILS % 69.6 % (39.0-77.0); NUCLEATED RED BLOOD CELLS% 0.5 /100WBC (0.0-0.0); PLATELET COUNT 244 10^3/UL (140-415); RED BLOOD COUNT 2.72 10^6/ul (4.20-5.40); RED CELL DISTRIBUTION WIDTH 16.6 % (11.5-14.5)
[2018-07-03 05:24] LABS: WHITE BLOOD COUNT 8.5 10^3/ul (4.8-10.8)
[2018-07-03 05:41] LABS: ANION GAP 1 (5-13); BLOOD UREA NITROGEN 26 mg/dl (7-20); CALCIUM 8.8 mg/dl (8.4-10.2); CARBON DIOXIDE 25 mmol/L (21-31); CHLORIDE 115 mmol/L (97-110); Estimated GFR > 60 mL/min (>60); GLUCOSE 100 mg/dl (70-220); MAGNESIUM 1.4 mg/dl (1.7-2.5); PHOSPHORUS 3.4 mg/dl (2.5-4.9); POTASSIUM 4.6 mmol/L (3.5-5.1); SODIUM 141 mmol/L (135-144)
[2018-07-03] MEDS: LEVOTHYROXINE 75 MCG TAB GTB (06:08)
[2018-07-03] MEDS: APIXABAN 5 MG TABLET PO ×2 (08:24→21:10)
[2018-07-03] MEDS: MAGNESIUM SULFATE 2 GM/50 ML 50 ML IVPB (08:24)
[2018-07-03] MEDS: ASCORBIC ACID 500 MG TAB GTB (08:24)
[2018-07-03] MEDS: GABAPENTIN 100 MG CAP GTB (21:09)
[2018-07-04] MEDS: ALBUTEROL/IPRATROPIUM (NEB) 3 ML AMP HHN (02:22)
[2018-07-04] MEDS: LEVOTHYROXINE 75 MCG TAB GTB (06:39)
[2018-07-04] MEDS: MIDODRINE 5 MG TAB PO ×2 (06:39→13:33)
[2018-07-04] MEDS: APIXABAN 5 MG TABLET PO (08:34)
[2018-07-04] MEDS: ASCORBIC ACID 500 MG TAB GTB (08:34)
[2018-07-04 08:49] LABS: ADD MAN DIFF? NO
[2018-07-04 09:06] LABS: WHITE BLOOD COUNT 7.3 10^3/ul (4.8-10.8)
[2018-07-04 09:06] LABS: BASOPHILS % 0.3 % (0.0-2.0); EOSINOPHILS # 0.1 10^3/ul (0.0-0.5); EOSINOPHILS % 1.4 % (0.0-7.0); HEMOGLOBIN 8.1 g/dl (12.0-16.0); LYMPHOCYTES # 1.3 10^3/ul (0.8-2.9); LYMPHOCYTES % 18.4 % (15.0-51.0); MEAN CORPUSCULAR HEMOGLOBIN 27.7 pg (29.0-33.0); MEAN CORPUSCULAR HGB CONC 31.2 g/dl (32.0-37.0); MEAN PLATELET VOLUME 11.7 fl (7.4-10.4); MONOCYTES % 13.8 % (0.0-11.0); NEUTROPHIL # 4.8 10^3/ul (1.6-7.5); NEUTROPHILS % 65.7 % (39.0-77.0); NUCLEATED RED BLOOD CELLS% 0.4 /100WBC (0.0-0.0); PLATELET COUNT 271 10^3/UL (140-415); RED BLOOD COUNT 2.92 10^6/ul (4.20-5.40); RED CELL DISTRIBUTION WIDTH 16.6 % (11.5-14.5)
[2018-07-04 09:48] LABS: ANION GAP 5 (5-13); BLOOD UREA NITROGEN 25 mg/dl (7-20); CALCIUM 9.2 mg/dl (8.4-10.2); CARBON DIOXIDE 24 mmol/L (21-31); CHLORIDE 113 mmol/L (97-110); CREATININE 0.59 mg/dl (0.44-1.00); Estimated GFR > 60 mL/min (>60); GLUCOSE 99 mg/dl (70-220); MAGNESIUM 1.7 mg/dl (1.7-2.5); PHOSPHORUS 3.4 mg/dl (2.5-4.9); POTASSIUM 4.9 mmol/L (3.5-5.1); SODIUM 142 mmol/L (135-144)
[2018-07-08] MEDS ORDERED: APIXABAN 5 MG TABLET PO (21:00)
== END 2018-07-04 20:25 | DRG 871 ==
LOC: TEL 07-03 15:41 → ICU 06-24 05:04 → E/R 16:19 → 6WM 20:30 → ICU 20:22 → 6WM 22:28
PROC: 02HV33Z Insertion of Infusion Device into Superior Vena Cava, Percutaneous Approach (ICD-10-PCS; principal; 2018-06-24)
PROC: 30233N1 Transfusion of Nonautologous Red Blood Cells into Peripheral Vein, Percutaneous Approach (ICD-10-PCS; 2018-06-24)
PROC: 5A1935Z Respiratory Ventilation, Less than 24 Consecutive Hours (ICD-10-PCS; 2018-07-01)
DX: A41.9 Sepsis, unspecified organism (principal); J69.0 Pneumonitis due to inhalation of food and vomit; R53.2 Functional quadriplegia; R65.21 Severe sepsis with septic shock; J96.20 Acute and chronic respiratory failure, unspecified whether with hypoxia or hypercapnia; G92 Toxic encephalopathy; N39.0 Urinary tract infection, site not specified; E87.0 Hyperosmolality and hypernatremia; N17.9 Acute kidney failure, unspecified; E87.2 Acidosis; G93.49 Other encephalopathy; I82.403 Acute embolism and thrombosis of unspecified deep veins of lower extremity, bilateral; E86.0 Dehydration; E87.6 Hypokalemia; I44.0 Atrioventricular block, first degree; E03.9 Hypothyroidism, unspecified; D50.9 Iron deficiency anemia, unspecified; Z66 Do not resuscitate; R13.19 Other dysphagia; E83.42 Hypomagnesemia; Z93.0 Tracheostomy status; Y95 Nosocomial condition; Z22.322 Carrier or suspected carrier of Methicillin resistant Staphylococcus aureus; Z93.1 Gastrostomy status; Z86.718 Personal history of other venous thrombosis and embolism
CPT/HCPCS: 36430; 36569; 36600; 70450; 71045; 76775; 76937; 80048; 80053; 80202; 81001; 81003; 82043; 82533; 82803; 82962; 83036; 83605; 83735; 84100; 84155; 84300; 84443; 84484; 85025; 85610; 85730; 86850; 86900; 86901; 86920; 87040-91; 87070; 87081; 87086; 87400; 92526; 92610; 93005; 93306; 93970; 94640; 94664; 96374; 96375; 97163; 99291-25